=== PATIENT | female | born 1965 | race Caucasian/White ===

== ENCOUNTER → 2023-08-11 | Outpatient (CLI) | payer BC ==
[2023-08-11 13:44] LABS: INR 0.9 (<1.2); Partial Thromboplastin Time 25.6 sec (22.0-30.0); Prothrombin Time 10.5 sec (10.0-12.5)
[2023-08-11 16:17] LABS: Basophils # (A) 0.08 X 10*3/uL (0.00-0.10); Basophils % (A) 1.4 %; Eosinophils # (A) 0.14 X 10*3/uL (0.04-0.35); Eosinophils % (A) 2.5 %; HCT 30.8 % (37.2-46.3); HGB 9.2 g/dL (12.0-15.0); Lymphocytes # (A) 1.31 X 10*3/uL (0.90-5.00); Lymphocytes % (A) 23.1 %; MCH 25.6 pg (27.0-32.0); MCHC 29.9 g/dL (32.0-37.0); MCV 85.8 FL (80.0-97.0); Mean Platelet Volume 10.3 FL (9.5-12.2); Monocytes % (A) 5.3 %; NRBC Per 100 WBC 0 X 10*3/uL (0.00-0.01); Neutrophils # (A) 3.81 X 10*3/uL (1.80-7.70); Neutrophils % (A) 67.3 %; Platelet Count 354 X 10*3/uL (140-440); RBC 3.59 X 10*6/uL (4.10-5.20); RDW 14.5 % (11.5-14.5); WBC 5.66 X 10*3/uL (4.50-10.00)
[2023-08-11 18:40] LABS: Anion Gap 11.9 mmol/L (4.00-12.00); Carbon Dioxide 22.1 mmol/L (21.6-31.8); Potassium 4.3 mmol/L (3.5-5.5)
== END | disposition home or self-care (01) ==
LOC: LABWHC1 12:15
PROVIDERS: ATTEND Orthopaedic Surgery Sports Medicine
DX: M16.11 Unilateral primary osteoarthritis, right hip (principal)
CPT/HCPCS: 36415; 80051; 85025; 85610; 85730; 87070